=== PATIENT | female | born 1945 | race Caucasian/White ===

== ENCOUNTER 2019-12-09 15:35 | Emergency (ER) | payer BC, MEDICAID ==
[~2019-12-09] VITALS: Ht 167.6 cm; Wt 115.2 kg
[2019-12-09] MEDS ORDERED: LIPITOR40 MG PO (15:48)
[2019-12-09] MEDS ORDERED: BISACODYL10 MG RECTAL (15:48)
[2019-12-09] MEDS ORDERED: FLORANEX TABLE1 EACH PO (15:48)
[2019-12-09] MEDS ORDERED: PLAVIX 75 MG TA75 M1 PO (15:49)
[2019-12-09] MEDS ORDERED: CARVEDILOL12.5 MG PO (15:49)
[2019-12-09] MEDS ORDERED: CEFTRIAXON2 GM/50 M1 IV (15:49)
[2019-12-09] MEDS ORDERED: SLOW FE142 MG PO (15:50)
[2019-12-09] MEDS ORDERED: ESTRADIOL 1 MG T1 M1 PO (15:50)
[2019-12-09] MEDS ORDERED: NEURONTIN 300M300 M2 PO (15:51)
[2019-12-09] MEDS ORDERED: ISOSORBIDE DINI30 MG PO (15:52)
[2019-12-09] MEDS ORDERED: LANTUS SUBQ ×2 (15:53→15:54)
[2019-12-09] MEDS ORDERED: MILK OF MA400 MG/5 M PO (15:55)
[2019-12-09] MEDS ORDERED: NYSTATIN1 EA10 TOP (15:55)
[2019-12-09] MEDS ORDERED: LEVO-T75 MCG PO (15:55)
[2019-12-09] MEDS ORDERED: SANTYL OINTMENT30 G1 TOP (15:56)
[2019-12-09] MEDS ORDERED: TRAMADOL 50 MG50 MG PO (15:56)
[2019-12-09] MEDS ORDERED: OMEPRAZOLE 20 M20 M1 PO (15:56)
[2019-12-09] MEDS ORDERED: VENLAFAXINE HCL75 MG PO (15:57)
[2019-12-09] MEDS ORDERED: JANTOVEN2.5 MG PO (15:57)
[2019-12-09 16:19] LABS: ABSOLUTE BASOPHILS 0.1 thou/uL (0.0-0.2); ABSOLUTE EOSINOPHILS 0.3 thou/uL (0.0-0.7); ABSOLUTE LYMPHOCYTES 0.5 thou/uL (0.8-5.3); ABSOLUTE MONOCYTES 0.5 thou/uL (0.0-1.2); BASOPHILS 1.3 %; EOSINOPHILS 3.4 %; HEMATOCRIT 31.3 % (37.0-47.0); HEMOGLOBIN 9.9 gm/dL (12.0-15.0); LYMPHOCYTES 5.5 %; MCH 26.5 pg (26.0-34.0); MCHC 31.7 g/dL (28.0-37.0); MCV 83.5 fL (80.0-100.0); MONOCYTES 5.7 %; MPV 6.4 fl. (7.2-11.1); NUCLEATED RBCS 0 /100WBC; PLATELET COUNT* 443 thou/uL (150-400); POLYS 84.1 %; RBC 3.74 mil/uL (4.20-5.00); RDW-CV 21.2 % (10.5-14.5); WBC 9.6 thou/uL (4.0-11.0)
[2019-12-09 16:27] LABS: APTT 29.9 Seconds (25.0-31.3); INR 1.4; PROTIME 14.7 Seconds (9.20-11.50)
[2019-12-09 16:33] LABS: ANION GAP 12 mmol/L (7-16); BUN 29 mg/dL (7-18); CALCIUM 8.2 mg/dL (8.5-10.1); CHLORIDE 108 mmol/L (98-107); CO2 23 mmol/L (21-32); CREATININE 1.8 mg/dL (0.6-1.3); GLUCOSE 139 mg/dL (70-99); SODIUM 143 mmol/L (136-145)
[2019-12-09 16:44] LABS: ALBUMIN 2.8 g/dL (3.4-5.0); ALKALINE PHOSPHATASE 80 U/L (46-116); NT-PRO BRAIN NAT PEPTIDE > 35000 pg/mL (<300); SGOT 12 U/L (15-37); SGPT 12 U/L (30-65); TOTAL BILIRUBIN 0.4 mg/dL (<0.1-1.0); TOTAL PROTEIN 6.2 g/dL (6.4-8.2)
[2019-12-09 17:27] LABS: ANISOCYTOSIS 2+; MICROCYTES 1+; PLATELET ESTIMATE INCREASED
[2019-12-09 17:28] LABS: POLYCHROMASIA Occasional
[2019-12-09 17:47] VITALS: BP 166/92
--- NOTE | 2019-12-10 13:15 | EKG ---
[place] [address] ELECTROCARDIOGRAM REPORT Name: LAW BERRY Room: [facility]#: [id number] Admission: 12/09/19 Attend Phys: Discharge: 12/09/19 Date of : 43 Date of Service: 12/09/19 1632 Report #: [id number] THIS REPORT FOR: //name// [facility] ED Test Date: 2019-12-09 Test Time: 16:32:18 Pat Name: LAW BERRY Department: Room: Gender: Export Sales Assistant: BINDU : 1945 Requested By: Jaya Delgado Order Number: [id number] MD: Julio Collazo Measurements Intervals [place] Rate: 65 P: OR: QRS: 21 QRSD: 81 T: 72 QT: 447 QTc: 465 Interpretive Statements Atrial fibrillation No previous ECG available for comparison Electronically Signed On 12-10-2019 13:15:51 CDT by Julio Collazo [email or web address] <ELECTRONICALLY SIGNED> By: Julio Collazo MD, [facility] 12/10/19 1315 31 31 Julio Collazo MD, FACC /EPI
== END 2019-12-09 18:23 | disposition home or self-care (01) ==
LOC: M.ERS 15:35
PROVIDERS: Family Medicine
DX: T82.594A Other mechanical complication of infusion catheter, initial encounter (principal); I11.0 Hypertensive heart disease with heart failure; I50.9 Heart failure, unspecified; E11.9 Type 2 diabetes mellitus without complications; E78.00 Pure hypercholesterolemia, unspecified; Z79.4 Long term (current) use of insulin; Z88.0 Allergy status to penicillin; Z88.1 Allergy status to other antibiotic agents; Z88.6 Allergy status to analgesic agent